=== PATIENT | female | born 1980 | race Caucasian/White ===

== ENCOUNTER → 2019-11-03 | Day surgery (SDC) | payer BC ==
[~2019-11-03] MED LIST: FENTANYL CITR 100 MCG/2 ML ONE; KETOROLAC 30 MG/ML INJ ONE; LIDOCAINE 1% W/EPI 1:100,000 MDV 20 ML VIAL ONE; LIDOCAINE 2% MPF 5 ML VIAL ONE; METOCLOPRAMIDE 10 MG/2mL INJ ONE; NA CIT/CITRIC AC 30 ML ORAL UDC ONE; NS 0.9% VIAL 20 ML ONE; ONDANSETRON 4 MG/2 ML VIAL ONE; Ringers Lactate 1,000 ML IV ONE; SUCCINYLCHOLINE 20 MG/ML (10 ML) IV ONE; VASOPRESSIN 20 UNIT/ML VIAL ONE; dexAMETHasone 10 MG/ML VIAL ONE; propofoL 200 MG/20 ML VIAL IV ONE
[2019-11-03] MEDS: CEFAZOLIN/SWI 2gm 2 GM/20 ML SYR ONE ×2 (15:51→16:08)
--- OUTSIDE RECORDS SUMMARY | 2019-11-03 17:02 | XMS REPORT | Continuity of Care Document ---
:1980 Author Organization [facility] t Address [address] [place] [address] Dr. Resendiz [address] [place] [id number] Care Team Providers Name Role Phone Unavailable Unavailable Unavailable Problems This patient has no known problems. Allergies, Adverse Reactions, Alerts This patient has no known allergies or adverse reactions. Medications This patient has no known medications. Procedures This patient has no known procedures. Results This patient has no known results.
[2019-11-03 17:20] VITALS: O2SAT 100
[2019-11-03 18:32] VITALS: BP 112/59; TEMP 98.2
--- NOTE | 2019-11-04 01:14 | OP ---
Date of Procedure: 11/03/2019 Surgeon: Malinda Milligan MD Preoperative Diagnosis: Three weeks postop laparoscopic hysterectomy with vaginal cuff bleeding. Postoperative Diagnosis: Three weeks postop laparoscopic hysterectomy with vaginal cuff bleeding. Procedure Performed: Exam under anesthesia, vaginal cuff epithelial resuturing for hemostasis. Anesthesia: General. Specimens: No specimens. Complications: No complications. Drains: No drains. Condition: The patient's condition stable. Findings: Left end of the vaginal cuff had epithelial separation about 1.5 cm and this was where the re was granulation tissue and was bleeding. The cuff was entirely intact at the connective tissue le michelle. No cuff dehiscence was noted. This could be completed by superficial cuff separation, no evidence of any infection. No necrotic ti ssue was seen. Indication: The patient is a 39-year-old, who underwent a laparoscopic hysterectomy at [facility]. She came in today with heavy vaginal bleeding. Two days prior as well she had presented to the outpatient office for sudden-onset vaginal bleeding without any trigger of activity. She was examined, the cuff was intact, so she was discharged home with pelvic rest and while compliant on thi s, this morning at 2 a.m. she woke up with a large amount of bleeding, which over the day has subside d somewhat. However, she was filling a pad at least every 2 hours, so she was re-evaluated in the of fice and there was a concern for vaginal epithelial separation, so she was consented for exam under a nesthesia, re-suturing if needed. Bleeding infection complications were discussed with the patient a nd she was given 2 g of Ancef preop. Description Of Procedure: She was brought in as outpatient as this was an emergent procedure, do not have COVID results back, but she was COVID tested by the hospital policy, taken back to the OR with full precautions, placed in supine fashion on the operating table. General anesthesia given, placed in a dorsal lithotomy position in Efren stirrups. Vulva, vagina, and perineum were prepped and drape d in a sterile fashion. After placing a Hill speculum and a Vernon in the posterior and anterior wal l for retraction, vaginal cuff was well visualized. The right half of the cuff was intact without an y bleeding; on the left side, as discussed above there was a separation very superficial with granula tion tissue. This was bleeding to touch. So, noting this as the only abnormality, the connective ti ssue was probed. There was no evidence of any separation of the vaginal cuff dehiscence, so sutured the vaginal cuff and 0 Vicryl [address]1 needle were used. Three [id number] were placed and once the two were placed in this area where there was bleeding, then went onto the right side as well and plac ed another [id number] suture. There was excellent hemostasis, excellent closure, and no bleedin g at all. Thorough irrigation and suction were performed. Copious amount of fluid was used for this purpose and after ensuring complete hemostasis, the patient was recovered. Instrument, needle, and sponge counts were correct. She was taken back to the PACU in a stable condition without any problem s. She will be given Keflex for 1 week and she will come back for reexamination of the vaginal cuff in a week. MERNA/MELA Voice ID: [id number] Report ID: [id number]
== END ==
LOC: OR 14:30
PROVIDERS: ATTEND Obstetrics & Gynecology
PROC: 0UQGXZZ Repair Vagina, External Approach (ICD-10-PCS; principal; 2019-11-03 14:00)
DX: N99.820 Postprocedural hemorrhage of a genitourinary system organ or structure following a genitourinary system procedure (principal); Z11.59 Encounter for screening for other viral diseases; E03.9 Hypothyroidism, unspecified; Z79.899 Other long term (current) drug therapy
CPT/HCPCS: 57200; U0002; J2704; J2765; J0330; J3010; J1100; J0690; J7120; J2405